=== PATIENT | female | born 1945 ===

== ENCOUNTER 2019-03-21 09:08 | Emergency (ER) | payer BC, MEDICARE ==
[2019-03-21 09:20] VITALS: BMI 29.7
[2019-03-21 09:23] VITALS: BP 191/79; PULSE 95; RESP 18; TEMP 97.7; O2SAT 96
--- NOTE | 2019-03-21 10:19 | C.PDOC ---
History Of Present Illness 73 y/o female presents to the ER complaining of itching burning sensation around the dylan-vaginal and dylan-anal area which has been present for the past 1 year. Patient states that she has history of tinea cruris 1 year ago. Patient denies having fever,chills, dysuria, hematuria, vaginal discharge, and vaginal bleeding. Time Seen by Provider: 03/21/19 09:32 Chief Complaint (Nursing): Allergic Reaction History Per: Patient History/Exam Limitations: no limitations Onset/Duration Of Symptoms: Days Current Symptoms Are (Timing): Still Present Severity: Moderate Past Medical History Reviewed: Historical Data, Nursing Documentation, Vital Signs Vital Signs: Last Vital Signs Temp 97.7 F 03/21/19 09:20 Pulse 95 H 03/21/19 09:20 Resp 18 03/21/19 09:20 BP 191/79 H 03/21/19 09:20 Pulse Ox 96 03/21/19 09:20 - Medical History PMH: Arthritis, Diabetes, HTN, Hypercholesterolemia, Hypothyroidism Denies: CAD, CVA Surgical History: Cholecystectomy Denies: Pacemaker - [facility] Procedures MAMMOGRAPHY NEC (03/31/12) PERCUTAN NEEDLE BIOPSY OF BREAST (03/31/12) SUBTOTAL MASTECTOMY (04/13/12) Family History: States: Diabetes, Hypertension - Social History Hx Alcohol Use: No Hx Substance Use: No - Immunization History Hx Tetanus Toxoid Vaccination: No Hx Influenza Vaccination: Yes Hx Pneumococcal Vaccination: No Review Of Systems Except As Marked, All Systems Reviewed And Found Negative. Constitutional: Negative for: Fever, Chills Genitourinary: Positive for: Other (itching burning sensation to dylan-vaginal and dylan-anal area). Negative for: Dysuria, Hematuria, Vaginal Discharge, Vaginal Bleeding Physical Exam - Physical Exam Appears: Non-toxic, No Acute Distress Skin: Warm, Dry Head: Atraumatic, Normacephalic Eye(s): bilateral: Normal Inspection Nose: Normal Oral Mucosa: Moist Neck: Supple Chest: Symmetrical Gastrointestinal/Abdominal: Normal Exam, Soft, No Tenderness, No Guarding, No Rebound Pelvic: No Vaginal Bleeding, No Vaginal Discharge, Other (inflammation in groin and dylan-anal area consistent with tinea cruris, no vaginal fungal infection, exam chaperoned by nurse Butt) Neurological/Psych: Oriented x3, Normal Speech ED Course And Treatment O2 Sat by Pulse Oximetry: 96 (RA) Pulse Ox Interpretation: Normal Medical Decision Making Medical Decision Making: dylan-anal and b/l inguinal tinea no vag infection Clotrimazole w steroids topical Disposition Doctor Will See Patient In The: Office Counseled Patient/Family Regarding: Studies Performed, Diagnosis - Disposition Referrals: [facility] [Outside] [facility] [Outside] [facility] [Outside] [facility] [Outside] Disposition: HOME/ ROUTINE Disposition Time: 10:19 Condition: GOOD Additional Instructions: applica el inguento anti-hongo 2 veces al chino por 5 chino Mantiene el area seco Sigue con la Clin[facility] Familiar oswaldo necessario Prescriptions: Clotrimazole/Betamethasone [Lotrisone] 30 ml TOP BID 5 Days #1 bottle Instructions: Paulyck Itch Forms: [facility] (Nepali) Print Language: SURINAMESE - Clinical Impression Clinical Impression: Tinea cruris - Scribe Statement The provider has reviewed the documentation as recorded by the Gee Gray Provider Attestation: All medical record entries made by the Scribe were at my direction and personally dictated by me. I have reviewed the chart and agree that the record accurately reflects my personal performance of the history, physical exam, medical decision making, and the department course for this patient. I have also personally directed, reviewed, and agree with the discharge instructions and disposition.
== END 2019-03-21 10:25 | disposition home or self-care (01) ==
LOC: C.ER 09:08
DX: B35.6 Tinea cruris (principal); E03.9 Hypothyroidism, unspecified; E78.00 Pure hypercholesterolemia, unspecified; I10 Essential (primary) hypertension; E11.9 Type 2 diabetes mellitus without complications